=== PATIENT | male | born 1975 | race Caucasian/White ===

== ENCOUNTER 2018-05-09 08:30 | Day surgery (SDC) | payer OTHER ==
[~2018-05-09] VITALS: Ht 175.3 cm; Wt 107.0 kg
[~2018-05-09 08:30] MED LIST: ASMANEX220 MC1 INH; HYDROXYZINE HCL25 MG PO; LORATADINE10 M2 PO; NAPROSYN500 MG PO; OMEPRAZOLE20 M1 PO; PRAVASTATIN SOD10 MG PO; PROPRANOLOL HCL60 M1 PO; PROTONIX20 MG PO; PROZAC40 MG PO; TRAZODONE HCL100 MG PO; VENTOLIN HFA18 GM INH; VITAMIN C500 M5 PO; VITAMIN D1000 UNIT PO
--- NOTE | 2018-05-09 10:25 | NUR ---
05/09/18 Keny5 Kecia Ibrahim 1019- PT ARRIVES TO PACU ALERT. RESP EVEN AND UNLABORED. OXYGEN SAT HIGH 90'S ON 3L VIA NC. PT DENIES AND PAIN OR DIZZINESS. 1020- OXYGEN TURNED OFF. OXYGEN SAT MID 90'S ON RA. RESP EVEN AND UNLABORED.
--- NOTE | 2018-05-10 08:45 | OR ---
[facility] [address], [place] [address] Signed DATE OF OPERATION: 05/09/2018 SURGEON: Diana Huang MD PREOPERATIVE DIAGNOSES: 1. Hiatal hernia. 2. Gastroesophageal reflux disease. 3. Cough. 4. Asthma. 5. Chronic sinusitis. POSTOPERATIVE DIAGNOSES: 1. Mild diffuse gastritis. 2. Small hiatal hernia. PROCEDURES: EGD with CLOtest and biopsies of the antrum and GE junction. ESTIMATED BLOOD LOSS: None. INDICATIONS: Antony is a 43-year-old gentleman asked to see me for upper endoscopy. He is known to have chronic sinusitis along with asthma and a cough. He has been following along with his primary care provider and his Ear, Nose, and Throat surgeon. He is also known to have a hiatal hernia with acid reflux. He had upper endoscopy back in 2012, but cannot recall much about it. He does not remember receiving any information afterwards, but he does have an understanding that he has acid reflux and hiatal hernia. In the office, I gave him a [employer] brochure on acid reflux and hiatal hernia. We looked at that together in detail. We also look at upper endoscopy. He understands the nature of the test along with the risks including, but not limited to gas, bloating, crampy abdominal pain, bleeding, perforation, requiring surgery, and missed diagnosis. He had expressed understanding and wished to proceed with his upper endoscopy. PROCEDURE NOTE: Jose was taken into our endoscopy suite and placed in the supine semi-recumbent position. The posterior oropharynx was anesthetized with Hurricaine spray. A bite block was utilized for the case. He was given a total of 4 mg of Versed and 100 mcg of fentanyl to cover the case. The adult gastroscope was introduced and advanced all the way around into the third portion of the duodenum under direct visualization of camera Portions of this report were created using voice recognition software. There may be inadvertent computer error. Please read with context in mind. If there are any questions, please contact me. Electronically Signed By: DIANA HUANG MD 05/10/18 0845 PATIENT NAME: JOSE BEEBE OPERATIVE REPORT DATE OF : 71 REPORT #: [id number] PHYSICIAN: DIANA HUANG MD PCP: NORA ESCOBAR REPORT IS CONFIDENTIAL AND NOT TO BE RELEASED WITHOUT AUTHORIZATION [facility] [address], [place] [address] Signed without difficulty. The duodenum and pyloric channel were unremarkable. He had some mild superficial diffuse erythematous changes in the stomach. We took a biopsy of the antrum for CLOtest as well as pathologic review. Upon retroflexion of scope, he does have a small hiatal hernia. There were no gastric or esophageal varices. The scope was withdrawn up through the area of GE junction, which was compliant without stricture. He has minimal disruption with some granulation tissue around the Z-line. There was no Sahh's mucosa, no distal esophagitis. We went ahead and took a biopsy right at the Z-line for pathologic review. The middle and upper esophagus were unremarkable. After this, the gas was suctioned out and the gastroscope removed. Jose tolerated the procedure quite well. RECOMMENDATIONS: I will see Jose back in my office in 7 to 14 days to review his results. Diana Huang MD ALB/MODL /[id number] cc: MD Nora Lowry Copies: DIANA HUANG MD, MARY ANN G ~ Portions of this report were created using voice recognition software. There may be inadvertent computer error. Please read with context in mind. If there are any questions, please contact me. Electronically Signed By: DIANA HUANG MD 05/10/18 0845 PATIENT NAME: JOSE BEEBE OPERATIVE REPORT DATE OF : 71 REPORT #: [id number] PHYSICIAN: DIANA HUANG MD PCP: NORA ESCOBAR REPORT IS CONFIDENTIAL AND NOT TO BE RELEASED WITHOUT AUTHORIZATION
== END 2018-05-09 10:50 | disposition home or self-care (01) ==
LOC: DS 08:30 → OPS 08:30 → DS 09:45 → OPS 10:50
PROVIDERS: Colon & Rectal Surgery
PROC: 0DB48ZX Excision of Esophagogastric Junction, Via Natural or Artificial Opening Endoscopic, Diagnostic (ICD-10-PCS; 2018-05-09)
PROC: 0DB78ZX Excision of Stomach, Pylorus, Via Natural or Artificial Opening Endoscopic, Diagnostic (ICD-10-PCS; principal; 2018-05-09 09:45)
DX: K29.50 Unspecified chronic gastritis without bleeding (principal); K44.9 Diaphragmatic hernia without obstruction or gangrene; J45.909 Unspecified asthma, uncomplicated; J32.9 Chronic sinusitis, unspecified; K21.9 Gastro-esophageal reflux disease without esophagitis; I10 Essential (primary) hypertension; Z79.899 Other long term (current) drug therapy; Z79.1 Long term (current) use of non-steroidal anti-inflammatories (NSAID)
CPT/HCPCS: 86677; 88305; G0500; J2250; J3010; J7120

== ENCOUNTER 2024-01-17 07:45 | Day surgery (SDC) | payer OTHER ==
[2023-12-24 13:32] VITALS: BP 136/96
[~2024-01-17] VITALS: Ht 175.3 cm; Wt 109.1 kg
[~2024-01-17 07:45] MED LIST changes: +FEXOFENADINE HC60 MG PO; +GABAPENTIN300 MG PO; +IBLOOD GLUCOSE TEST STRIP 1 EA TEST VI PRN; +LACTATED RINGER'S 1,000 ML IV SCH; +LIDOCAINE HCL 1% 5 ML SDV INJ ONE; +MIDAZOLAM HCL 5 MG/5 ML VIAL IV PRN; +PANTOPRAZOLE SO20 MG PO; +PRAZOSIN HCL5 MG PO; +RESTORIL15 MG PO; +SINGULAIR10 MG PO; +TRELEGY ELLIPT1 EACH IH; +VITAMIN B121000 MCG PO; +WIXELA 100-501 EACH PO; +fentaNYL citrate 100 MCG/2 ML VIAL IV PRN
[2024-01-17 07:59] VITALS: BP 144/94
[2024-01-17] MEDS ORDERED: fentaNYL citrate 100 MCG/2 ML VIAL ONE (09:44)
[2024-01-17] MEDS ORDERED: LIDOCAINE HCL 2% 5 ML SDV ONE ×2 (09:45→10:31)
[2024-01-17] MEDS ORDERED: propofoL 200 MG/20 ML VIAL ONE ×2 (09:45→10:31)
--- NOTE | 2024-01-17 11:06 | OR ---
[facility] [address] [place], [place] [address] Signed DATE OF OPERATION: 01/17/2024 SURGEON: Diana Huang MD PREOPERATIVE DIAGNOSIS: Screening. POSTOPERATIVE DIAGNOSES: 1. Minimal sigmoid diverticulosis. 2. 3 mm polypoid lesion at 68 cm in left colon. 3. Minimal internal hemorrhoids. PROCEDURE: Colonoscopy with hot biopsy. ESTIMATED BLOOD LOSS: None. INDICATIONS: Jose is a 48-year-old gentleman, I had actually known to many years through our local sporting events and our children. He was asked to see me for his initial screening colonoscopy. He checked with his father and found out his dad had hemorrhoids and not colonic polyps. He also told me that his grandfather and grandmother did not have any colonic polyps to his knowledge. He said he has no lower GI complaints. He has been through upper endoscopies in the past. In the office, I gave him a pamphlet on colonoscopy, we looked it very carefully. He understands the nature of the test along with the risk including, but not limited to gas bloating, crampy abdominal pain, bleeding, perforation requiring surgery, and missed diagnosis. We also reviewed the written instructions for the bowel prep line by line. Also, he has very significant sleep apnea along with PTSD from his service along with anxiety and alcohol use. He even has polycythemia from his obstructive sleep apnea. Consequently, he is a candidate for monitored anesthesia care with propofol infusion. He had expressed understanding and wished to proceed. PROCEDURE IN DETAIL: Jose was taken into the endoscopy suite and placed in the left lateral decubitus position. He actually was asking about the propofol infusion. Once he was sedated, a digital rectal exam was performed. This was unremarkable. There were no external hemorrhoids. He had good sphincter tone. There were no masses. The adult colonoscope was introduced and advanced all around into the cecum under direct visualization of Electronically Signed By: DIANA HUANG MD 01/17/24 1106 PATIENT NAME: JOSE BEEBE OPERATIVE REPORT DATE OF : 71 REPORT #: [id number] PHYSICIAN: DIANA HUANG MD PCP: LESLY BEAR PAC REPORT IS CONFIDENTIAL AND NOT TO BE RELEASED WITHOUT AUTHORIZATION [facility] [address] [place] [id number] Signed camera without difficulty. His prep was quite excellent. The scope was then slowly withdrawn. We could easily see the appendiceal orifice and the ileocecal valve. We took pictures throughout for photodocumentation. We saw just a tiny lesion back at 68 cm, which we removed and destroyed completely with the hot biopsy forceps. He had just a few little diverticula in the sigmoid colon. The rectum was unremarkable. Upon retroflexion of the scope, he has standard internal hemorrhoid columns. After this, the gas was suctioned out and the colonoscope removed. Jose tolerated the procedure quite well. RECOMMENDATIONS: Jose will follow up my office in 7 to 14 days to review his results. Diana Huang MD ALB/MODL /[id number] cc: MD Lesly Lowry PA Copies: DIANA HUANG MD ~ Electronically Signed By: DIANA HUANG MD 01/17/24 1106 PATIENT NAME: JOSE BEEBE OPERATIVE REPORT DATE OF : 71 REPORT #: [id number] PHYSICIAN: DIANA HUANG MD PCP: LESLY BEAR PAC REPORT IS CONFIDENTIAL AND NOT TO BE RELEASED WITHOUT AUTHORIZATION
[2024-01-17 12:54] VITALS: BP 133/93
--- NOTE | 2024-01-17 13:41 | NUR ---
01/17/24 1341 Sheets,Alisson 1018 PT ARRIVED TO PACU ON 6L, SNORING NOTED. O2 DECREASED TO 89%, PT WOKE TO TACTILE STIMULI AND DEEP BREATHING ENCOURAGED. O2 INCREASED. PT EASILY FALLS BACK TO SLEEP.
--- NOTE | 2024-01-21 18:30 | PATH ---
[facility] [address] [facility] [place] [address] Signed SPECIMEN(S): A DESCENDING POLYP, 68 CM SPECIMEN SOURCE: A. DESCENDING POLYP, 68 CM CLINICAL HISTORY: Screening, minimal internal hemorrhoids, diverticulosis, colon polyp FINAL PATHOLOGIC DIAGNOSIS: Descending polyp at 68 cm: - Tubular adenoma (one fragment). JVR:clv MICROSCOPIC EXAMINATION: Histologic sections of all submitted blocks are examined by light microscopy. These findings, together with the gross examination, support the pathologic diagnosis. GROSS DESCRIPTION: The specimen, labeled and designated "Russ, descending polyp, 68 cm," is received in formalin and consists of one lo soft tissue fragment, 0.1 cm. Entirely submitted in (A1). VB (under the direct supervision of a pathologist) The Gross Description was prepared using a voice recognition system. The report was reviewed for accuracy; however, sound-alike word errors, addition and/or deletions may occur. If there is any question about this report, please contact Client Services. PERFORMING LABORATORY: Technical component was performed by [facility], [address] [place] [id number] (CLIA# [id number]). Professional interpretation was performed by [facility], [address] [place] [id number] (CLIA#: [id number]). Diagnostician: Enmanuel Tee MD Pathologist Electronically Signed 01/21/2024 Copies: PATIENT NAME: PAULLUSBARON RECORD #: [id number] PATHOLOGY DATE OF : 71 REPORT #: [id number] PHYSICIAN: YOVANI PATHOLOGY PCP: GHISLAINE BEAR PAC REPORT IS CONFIDENTIAL AND NOT TO BE RELEASED WITHOUT AUTHORIZATION [address] [address] Signed ~ PATIENT NAME: BARON BEEBE PATHOLOGY DATE OF : 71 REPORT #: [id number] PHYSICIAN: YOVANI PATHOLOGY PCP: GHISLAINE BEAR PAC REPORT IS CONFIDENTIAL AND NOT TO BE RELEASED WITHOUT AUTHORIZATION
== END 2024-01-17 11:15 | disposition home or self-care (01) ==
LOC: DS 07:45
PROVIDERS: ATTEND Colon & Rectal Surgery
PROC: 0DBG8ZZ Excision of Left Large Intestine, Via Natural or Artificial Opening Endoscopic (ICD-10-PCS; principal; 2024-01-17 08:50)
DX: Z12.11 Encounter for screening for malignant neoplasm of colon (principal); D12.4 Benign neoplasm of descending colon; K57.30 Diverticulosis of large intestine without perforation or abscess without bleeding; K64.8 Other hemorrhoids; I10 Essential (primary) hypertension; F43.10 Post-traumatic stress disorder, unspecified; G47.33 Obstructive sleep apnea (adult) (pediatric); J45.909 Unspecified asthma, uncomplicated; E83.119 Hemochromatosis, unspecified; E66.9 Obesity, unspecified; Z68.36 Body mass index [BMI] 36.0-36.9, adult; Z79.899 Other long term (current) drug therapy
CPT/HCPCS: 00812; J2003; J2704; J3010; J7121

== ENCOUNTER 2025-01-08 17:19 | Emergency (ER) | payer OTHER ==
[~2025-01-08] VITALS: Ht 175.3 cm; Wt 94.8 kg
[~2025-01-08 17:19] MED LIST changes: -IBLOOD GLUCOSE TEST STRIP 1 EA TEST VI PRN; -LACTATED RINGER'S 1,000 ML IV SCH; -LIDOCAINE HCL 1% 5 ML SDV INJ ONE; -MIDAZOLAM HCL 5 MG/5 ML VIAL IV PRN; -fentaNYL citrate 100 MCG/2 ML VIAL IV PRN
[2025-01-08] MEDS ORDERED: predniSONE 20 MG TAB PO ONE (20:15)
[2025-01-08] MEDS ORDERED: PREGABALIN 75 MG CAP PO ONE (20:15)
[2025-01-08] MEDS ORDERED: HYDROCODON-ACE1 EA10 PO (21:37)
[2025-01-08] MEDS ORDERED: methylPREDNISolone 4 MG HOME.PACK PO ONE (21:45)
[2025-01-08] MEDS ORDERED: HYDROCODONE BIT/ACETAMINOPHEN 5/325 MG 1 TAB HOME.PACK PO ONE (21:45)
[2025-01-08 22:16] VITALS: BP 126/81
== END 2025-01-08 21:56 | disposition home or self-care (01) ==
LOC: ED 17:19
DX: M50.122 Cervical disc disorder at C5-C6 level with radiculopathy (principal); M48.02 Spinal stenosis, cervical region; Z79.899 Other long term (current) drug therapy
CPT/HCPCS: 71260; 72125; 99283-25; A9270; J7512; Q9967

== ENCOUNTER 2025-02-03 14:09 | Emergency (ER) | payer OTHER ==
[~2025-02-03] VITALS: Ht 175.3 cm; Wt 94.5 kg
[~2025-02-03 14:09] MED LIST changes: +HYDROCODON-ACE1 EA10 PO
--- OUTSIDE RECORDS SUMMARY | 2025-02-03 14:16 | XMS ---
PreManage Notification: BARON BEEBE Security Set Up / Operator Events No recent Security Events currently on file CRITERIA MET - [facility] - 2 Visits in 30 Days CARE PROVIDERS There are no care providers on record at this time. Elian has no Care Guidelines for this patient. Carlos VISIT COUNT (12 MO.) 2 [facility]. TOTAL 2 NOTE: Visits indicate total known visits. ED/[facility] VISIT TRACKING (12 MO.) [facility] COMPLAINT: - NUMBNESS 01/08/2025 17:20 [facility] [place] TYPE: Emergency COMPLAINT: - POSSIBLE PINCHED NERVE LEFT SIDE DIAGNOSES: - Cervical disc disorder at C5-C6 level with radiculopathy - Cervicalgia - Other fci (current) drug therapy - Spinal stenosis, cervical region INPATIENT VISIT TRACKING (12 MO.) No inpatient visits to display in this time frame [email or web address]
[2025-02-03] MEDS ORDERED: LYRICA50 MG PO (14:59)
[2025-02-03] MEDS ORDERED: BACLOFEN10 MG PO (15:00)
[2025-02-03 15:59] LABS: BASOPHILS 0.9 % (0.2-1.2); EOSINOPHILS 1.4 % (0.8-7.0); LYMPHOCYTES 32.6 % (21.8-53.1); MCH 30.0 PG (25.7-32.2); MCHC 34.5 g/dL (32.3-36.5); MCV 86.9 fL (79.0-92.2); MONOCYTES 7.4 % (5.3-12.2); NEUTROPHILS 57.3 % (34.0-67.9); RBC 5.74 M/uL (4.63-6.08)
[2025-02-03 16:16] LABS: ALT (SGPT) 28.0 U/L (14-59); AST (SGOT) 15.0 U/L (15-37); GLOMERULAR FILTRATION RATE,EST 71.0 mL/min (>60); PROTEIN, TOTAL 7.3 g/dL (6.4-8.2); UREA NITROGEN 18.0 mg/dL (7-18)
[2025-02-03 17:39] VITALS: BP 136/94
== END 2025-02-03 17:40 | disposition home or self-care (01) ==
LOC: ED 14:09
PROVIDERS: Emergency Medicine
DX: R42 Dizziness and giddiness (principal); Z79.51 Long term (current) use of inhaled steroids; Z79.899 Other long term (current) drug therapy
CPT/HCPCS: 36415; 70551; 80053; 85025; 99284-25